=== PATIENT | female | born 1995 | race African-American/Black ===

== ENCOUNTER 2021-02-02 06:31 | Inpatient (IN) ==
[2021-02-02] MEDS ORDERED: MEPERIDINE 50 MG/1 ML VIAL IV PRN (07:27)
[2021-02-02] MEDS ORDERED: BUTORPHANOL 2 MG/ML VIAL IV PRN (07:27)
[2021-02-02] MEDS ORDERED: ONDANSETRON 4 MG/2 ML VIAL IV PRN ×2 (07:27→21:47)
[2021-02-02] MEDS ORDERED: OXYTOCIN/LR 20 UNIT/1,000 ML BAG IV SCH (07:30)
[2021-02-02 07:50] LABS: Basophils % 0.1 % (0.0-0.8); Eosinophils % 0.2 % (0.00-10.9); Hematocrit 29.2 VOL% (35.7-47.0); Hemoglobin 9.2 GM/DL (12.0-16.0); Immature Granulocytes Absolute 0.08 #; Lymphocytes # 1.5 10*3/uL (1.4-4.0); Lymphocytes % 17.5 % (21.3-54.2); Mean Corpuscular HGB Conc 31.5 GM/DL (32-36); Mean Corpuscular Volume 85.9 FL (87-102); Mean Platelet Volume 8.7 FL (9.6-12.0); Monocytes % 6.8 % (1.7-12.7); NRBC # 0.02 10*3/uL; Neutrophils % 74.4 % (38.7-73.9); Platelet Count 291 T/CUMM (130-400); White Blood Count 8.4 T/CUMM (4-12)
[2021-02-02] MEDS ORDERED: LACTATED RINGERS 1,000 ML IV ONE (08:11)
[2021-02-02] MEDS ORDERED: CITRIC ACID/SODIUM CITRATE 30 ML UDCUP PO ONE (08:11)
[2021-02-02] MEDS ORDERED: PROMETHAZINE 25 MG/1 ML VIAL IM ONE (08:11)
[2021-02-02] MEDS ORDERED: ePHEDrine 50 MG/ML VIAL IV PRN (08:11)
[2021-02-02] MEDS ORDERED: FAMOTIDINE 20 MG/2 ML VIAL IV ONE (08:11)
[2021-02-02] MEDS ORDERED: NALOXONE 0.4 MG/ML VIAL IV PRN (08:11)
[2021-02-02] MEDS ORDERED: ONDANSETRON 4 MG/2 ML VIAL IV ONE (08:11)
[2021-02-02] MEDS ORDERED: hydrOXYzine HCL 25 MG/1 ML VIAL IM PRN (08:11)
[2021-02-02] MEDS ORDERED: diphenhydrAMINE 50 MG/1 ML VIAL IV PRN ×2 (08:11)
[2021-02-02 08:24] LABS: Alanine Aminotransferase 26 U/L (13-56); Albumin 2.5 G/DL (3.4-5.0); Alkaline Phosphatase 126 U/L (45-117); Aspartate Amino Transferase 16 U/L (0-37); Bilirubin,Total < 0.39 MG/DL (0.20-1.00); Blood Urea Nitrogen 8 MG/DL (7-18); Calcium 8.3 MG/DL (8.5-10.1); Carbon Dioxide 21 MMOL/L (21-32); Estimated Glom Filtration Rate 158 ML/MIN; Glucose 107 MG/DL (74-106); Osmolality,Calculated 274.5 MOS/KG (273-304); Potassium 3.7 MMOL/L (3.5-5.1); Sodium 139 MMOL/L (136-145); Total Protein 6.8 G/DL (6.4-8.2)
[2021-02-02] MEDS ORDERED: fentaNYL 2 MCG/ROPIV 0.2% EPID 100 ML EPIDURAL SCH (08:30)
[2021-02-02] MEDS: LACTATED RINGERS 1,000 ML IV SCH ×2 (09:15→13:09)
[2021-02-02 11:36] LABS: Bilirubin,Urine Negative (Negative); Blood, Urine Negative (Negative); Glucose,Urine (UA) Negative (Negative); Ketones,Urine 5 mg/dL (Negative); Mucus,Urine Occasional /LPF (Occasional); Nitrite,Urine Negative (Negative); Protein,Urine Negative; RBC,Urine 1 /HPF (0-4); Squamous Epithelial Cell,Urine Occasional /HPF (0-10); Urine Appearance CLEAR (Clear); Urine Color Yellow (Yellow); Urine Specific Gravity 1.018 (1.001-1.035); Urine Urobilinogen < 2.0 EU/DL (0.2-1.0)
[2021-02-02] MEDS ORDERED: miSOPROStoL 200 MCG TABLET ONE (19:54)
[2021-02-02] MEDS ORDERED: TRANEXAMIC ACID 1,000 MG/10 ML VIAL ONE (19:54)
[2021-02-02] MEDS ORDERED: OXYTOCIN/LR 20 UNIT/1,000 ML BAG IV ONE ×2 (19:54→21:47)
[2021-02-02] MEDS ORDERED: METHYLERGONOVINE 0.2 MG/1 ML AMP ONE (19:55)
[2021-02-02] MEDS ORDERED: LANOLIN 50% CREAM 0.3 OZ TUBE TOP PRN (21:47)
[2021-02-02] MEDS ORDERED: BENZOCAINE 20%/MENTHOL 0.5% SPRAY 56 GM CAN TOP PRN (21:47)
[2021-02-02] MEDS ORDERED: WITCH HAZEL PADS 100/JAR TOP PRN (21:47)
[2021-02-02] MEDS ORDERED: ACETAMINOPHEN 325 MG TABLET PO PRN (21:47)
[2021-02-02] MEDS ORDERED: BISACODYL 10 MG SUPP RECTAL PRN (21:47)
[2021-02-02] MEDS ORDERED: oxyCODONE/ACETAMINOPHEN 5-325 MG TABLET PO PRN (21:47)
[2021-02-02] MEDS ORDERED: RHO(D) IMMUNE GLOBULIN 300 MCG SYRINGE IM ONE (21:47)
[2021-02-02] MEDS ORDERED: HYDROCORTISONE 2.5% RECTAL CREAM 30 GM TUBE TOP PRN (21:47)
[2021-02-02] MEDS ORDERED: MEASLES/MUMPS/RUBELLA VACCINE 0.5 ML VIAL SUBCUT ONE (21:47)
[2021-02-02] MEDS ORDERED: DIPH/TET/ACEL PERT BOOSTER VACCINE 0.5 ML VIAL IM ONE (21:47)
[2021-02-02 21:52] LABS: Cord Arterial Blood HCO3 16.7 MMOL/L
[2021-02-02 21:53] LABS: Cord Venous Blood HCO3 19.4 MMOL/L; Cord Venous Blood PCO2 46.3 MMHG; Cord Venous Blood PO2 23.5
[2021-02-02] MEDS: IBUPROFEN 800 MG TABLET PO PRN (22:32)
[2021-02-03] MEDS: oxyCODONE/ACETAMINOPHEN 5-325 MG TABLET PO PRN ×2 (01:21→23:13)
[2021-02-03 05:51] LABS: Basophils % 0.1 % (0.0-0.8); Hematocrit 25.9 VOL% (35.7-47.0); Hemoglobin 8.4 GM/DL (12.0-16.0); Lymphocytes # 1.2 10*3/uL (1.4-4.0); Lymphocytes % 6.2 % (21.3-54.2); Mean Corpuscular HGB Conc 32.4 GM/DL (32-36); Mean Corpuscular Volume 84.6 FL (87-102); Mean Platelet Volume 9.2 FL (9.6-12.0); Monocytes % 5.2 % (1.7-12.7); Neutrophils % 87.5 % (38.7-73.9); Platelet Count 253 T/CUMM (130-400); Red Blood Count 3.06 MC/CUMM (3.8-5.5); Red Cell Distribution Width 14.1 % (9.3-17.3); White Blood Count 19.6 T/CUMM (4-12)
[2021-02-03] MEDS: DOCUSATE SODIUM 100 MG CAPSULE PO SCH ×2 (08:35→21:25)
[2021-02-03] MEDS: IBUPROFEN 800 MG TABLET PO PRN (14:53)
[2021-02-04] MEDS: IBUPROFEN 800 MG TABLET PO PRN (03:25)
[2021-02-04 07:59] VITALS: BP 109/73
[2021-02-04] MEDS: DOCUSATE SODIUM 100 MG CAPSULE PO SCH (08:44)
== END 2021-02-04 12:25 | disposition home or self-care (01) | DRG 560 ==
LOC: N.LD 06:31 → N.OB 02-03 01:30
PROVIDERS: ADMIT Student in an Organized Health Care Education/Training Program; ATTEND Student in an Organized Health Care Education/Training Program